=== PATIENT | female | born 2000 | race Two or more races ===

== ENCOUNTER 2024-10-08 13:00 | Emergency (ER) | payer BC ==
[~2024-10-08] VITALS: Ht 167.6 cm; Wt 63.5 kg
[2024-10-08] MEDS ORDERED: TRAZODONE HCL50 MG PO (13:40)
[2024-10-08] MEDS ORDERED: LEXAPRO5 MG (13:40)
[2024-10-08] MEDS ORDERED: LAMOTRIGINE50 MG (13:40)
[2024-10-08] MEDS ORDERED: HYDROXYZIN10 MG/5 ML (13:40)
== END 2024-10-08 15:16 ==
LOC: ER 13:03
DX: S99.821A Other specified injuries of right foot, initial encounter (principal); T63.691A Toxic effect of contact with other venomous marine animals, accidental (unintentional), initial encounter; Y92.832 Beach as the place of occurrence of the external cause; Y93.89 Activity, other specified; Y99.8 Other external cause status; R53.81 Other malaise